=== PATIENT | male | born 1955 ===

== ENCOUNTER 2019-05-11 11:01 | Outpatient (CLI) | payer MEDICARE, MEDICAID ==
[2019-05-11 12:25] LABS: Mean Corpuscular HGB Conc 36 % (32-34); Mean Corpuscular Volume 90 fl (84-94); Platelet Count 184 K/mm3 (140-440); Red Blood Count 5.09 M/mm3 (3.65-5.03); Red Cell Distribution Width 12.9 % (13.2-15.2)
[2019-05-11 12:29] LABS: Bilirubin,Urine NEG (Negative); Blood,Urine NEG (Negative); Color,Urine Amber (Yellow); Mucus,Urine FEW /HPF; Protein,Urine <15 mg/dL mg/dL (Negative); Urobilinogen,Urine < 2.0 mg/dL (<2.0)
[2019-05-11 12:30] LABS: Hemoglobin 16.3 gm/dl (11.8-15.2)
[2019-05-11 12:44] LABS: Alanine Aminotransferase 69 units/L (7-56); Albumin 4.3 g/dL (3.9-5); BUN/Creatinine Ratio 22; Blood Urea Nitrogen 13 mg/dL (9-20); Calcium 9.4 mg/dL (8.4-10.2); Hemolysis Index 5; LDL Cholesterol,Direct 104 mg/dL (50-130)
[2019-05-11 13:03] LABS: Chol/HDL Ratio 4.08 %; HDL Cholesterol 35 mg/dL (40-59)
[2019-05-14 12:57] LABS: Vitamin D, 25-OH, D2 <4 ng/mL
== END 2019-05-11 11:02 | disposition home or self-care (01) ==
LOC: LAB 11:01
PROVIDERS: ATTEND Internal Medicine
DX: R73.9 Hyperglycemia, unspecified (principal); R33.9 Retention of urine, unspecified; Z13.220 Encounter for screening for lipoid disorders; Z13.21 Encounter for screening for nutritional disorder; R79.89 Other specified abnormal findings of blood chemistry; R94.6 Abnormal results of thyroid function studies
CPT/HCPCS: 36415; 80053; 80061; 81001; 82306; 82607; 83036; 84153; 84443; 85027; 87086

== ENCOUNTER 2019-05-25 10:23 | Outpatient (CLI) | payer MEDICARE, MEDICAID ==
[2019-05-25 11:38] LABS: Albumin 4.5 g/dL (3.9-5); Bilirubin,Direct 0.2 mg/dL (0-0.2)
== END 2019-05-25 10:24 | disposition home or self-care (01) ==
LOC: LAB 10:23
PROVIDERS: ATTEND Internal Medicine
DX: R94.6 Abnormal results of thyroid function studies (principal); R74.0 Nonspecific elevation of levels of transaminase and lactic acid dehydrogenase [LDH]
CPT/HCPCS: 36415; 80076; 84436; 84443